=== PATIENT | female | born 1955 | race Caucasian/White ===

== ENCOUNTER 2017-03-26 07:33 | Emergency (ER) | payer OTHER ==
[2017-03-26 07:39] VITALS: BP 148/95; PULSE 61; RESP 16; TEMP 98.4; O2SAT 96
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
== END 2017-03-26 08:35 | disposition home or self-care (01) ==
DX: S52.572A Other intraarticular fracture of lower end of left radius, initial encounter for closed fracture (principal); I10 Essential (primary) hypertension; Z85.3 Personal history of malignant neoplasm of breast; V18.0XXA Pedal cycle driver injured in noncollision transport accident in nontraffic accident, initial encounter; Y92.410 Unspecified street and highway as the place of occurrence of the external cause; Y99.8 Other external cause status; Y93.55 Activity, bike riding

== ENCOUNTER → 2019-02-21 | Outpatient (CLI) | payer OTHER | LOC: FIMAGING 09:37 ==